=== PATIENT | female | born 1960 | race Caucasian/White ===

== ENCOUNTER 2017-02-09 07:45 | Emergency (ER) | payer OTHER ==
[~2017-02-09] VITALS: Ht 165.1 cm; Wt 59.1 kg
[2017-02-09] MEDS ORDERED: SODIUM CHLORIDE 0.9% 1,000 ML IV ONE (08:00)
[2017-02-09] MEDS ORDERED: NALOXONE HCL 1 MG/ML 2 ML SYG IVP ONE (08:00)
[2017-02-09 09:07] LABS: BASOPHILS % (AUTO) 0.3 % (0.0-2.0); EOSINOPHILS % (AUTO) 0.3 % (1.0-6.0); HEMOGLOBIN 13.9 g/dL (12.0-16.0); LYMPHOCYTES # (AUTO) 2.3 K/uL (1.0-4.8); LYMPHOCYTES % (AUTO) 38.5 % (22.0-44.0); MEAN CORPUSCULAR HEMOGLOBIN 32.6 pg (26.0-34.0); MEAN CORPUSCULAR HGB CONC 33.2 G/dL (31.0-37.0); MEAN CORPUSCULAR VOLUME 98 fL (80-100); MONOCYTES # (AUTO) 0.5 K/uL (0.1-1.0); MONOCYTES % (AUTO) 9.3 % (2.0-9.0); NEUTROPHILS % (AUTO) 51.6 % (40.0-70.0); PLATELET COUNT (AUTO) 126 K/uL (150-450); RED BLOOD CELL COUNT(AUTO) 4.27 MIL/uL (4.00-5.20); RED CELL DISTRIBUTION WIDTH 14.5 % (11.5-14.5); WHITE BLOOD COUNT (AUTO) 5.9 K/uL (4.5-11.0)
[2017-02-09 09:20] LABS: ANION GAP 3 mmol/L (8-16); CALCIUM, TOTAL 9.1 mg/dL (8.8-10.5); CARBON DIOXIDE 28 mmol/L (22-29); CHLORIDE 109 mmol/L (98-107); GLOMERULAR FILTR. RATE CALC > 60 mL/min (>60); POTASSIUM 3.2 mmol/L (3.5-5.1); SODIUM SERUM 140 mmol/L (136-145); UREA NITROGEN, BLOOD 14 mg/dL (7-18)
[2017-02-09 09:24] LABS: SALICYLATE 2.9 mg/dL (2.8-20.0)
[2017-02-09 09:25] LABS: ALANINE AMINOTRANSFERASE 58 U/L (12-78); ALBUMIN 3.5 g/dL (3.4-5.0); ASPARTATE AMINOTRANSFERASE 48 U/L (15-37); BILIRUBIN,TOTAL 0.7 mg/dL (0.1-1.0); TOTAL PROTEIN, SERUM 7.8 g/dL (6.4-8.2)
[2017-02-09 09:30] LABS: ACETAMINOPHEN < 2 mcg/mL (10-30)
[2017-02-09] MEDS ORDERED: HydrALAZINE HCL 20 MG/ML VIAL IVP ONE (14:45)
[2017-02-09 15:51] VITALS: BP 155/79
== END 2017-02-09 16:15 | disposition home or self-care (01) ==
LOC: EDBD 07:49 → EMS 07:49
DX: T50.7X1A Poisoning by analeptics and opioid receptor antagonists, accidental (unintentional), initial encounter (principal); I10 Essential (primary) hypertension; F17.210 Nicotine dependence, cigarettes, uncomplicated; F14.10 Cocaine abuse, uncomplicated; F13.20 Sedative, hypnotic or anxiolytic dependence, uncomplicated; F19.90 Other psychoactive substance use, unspecified, uncomplicated; Y92.481 Parking lot as the place of occurrence of the external cause
CPT/HCPCS: 36415; 71010; 80053; 80307; 84703; 85025; 93005; 96361; 96374; 99285; 99406; G0480 ×2; G0481; J2310; J7030

== ENCOUNTER 2017-12-10 05:56 | Emergency (ER) | payer OTHER ==
[~2017-12-10] VITALS: Ht 162.6 cm; Wt 68.7 kg
[2017-12-10] MEDS ORDERED: METH10SO PO (06:07)
[2017-12-10 07:02] LABS: GLUCOSE,POINT OF CARE 112 MG/DL (70-110)
[2017-12-10 07:28] LABS: BASOPHILS % (AUTO) 0.6 % (0.0-2.0); EOSINOPHILS % (AUTO) 1.3 % (1.0-6.0); HEMATOCRIT 42.4 % (36-46); HEMOGLOBIN 14.5 g/dL (12.0-16.0); LYMPHOCYTES # (AUTO) 2.3 K/uL (1.0-4.8); LYMPHOCYTES % (AUTO) 55.1 % (22.0-44.0); MEAN CORPUSCULAR HEMOGLOBIN 33.1 pg (26.0-34.0); MEAN CORPUSCULAR HGB CONC 34.2 G/dL (31.0-37.0); MEAN CORPUSCULAR VOLUME 97 fL (80-100); MONOCYTES # (AUTO) 0.4 K/uL (0.1-1.0); MONOCYTES % (AUTO) 10.5 % (2.0-9.0); NEUTROPHILS # (AUTO) 1.4 K/uL (1.8-7.7); NEUTROPHILS % (AUTO) 32.5 % (40.0-70.0); PLATELET COUNT (AUTO) 122 K/uL (150-450); RED BLOOD CELL COUNT(AUTO) 4.39 MIL/uL (4.00-5.20); RED CELL DISTRIBUTION WIDTH 13.9 % (11.5-14.5)
[2017-12-10 07:40] LABS: AMPHET/METH SCREEN,URINE POSITIVE (NEGATIVE); BARBITURATE SCREEN, URINE NEGATIVE (NEGATIVE); BENZODIAZEPINES SCREEN,URINE POSITIVE (NEGATIVE); CANNABINOID SCREEN,URINE NEGATIVE (NEGATIVE); COCAINE SCREEN,URINE POSITIVE (NEGATIVE); METHADONE SCREEN, URINE POSITIVE (NEGATIVE); OPIATE SCREEN,URINE NEGATIVE (NEGATIVE)
[2017-12-10 07:44] LABS: PHENCYCLIDINE SCREEN,URINE POSITIVE (NEGATIVE)
[2017-12-10] MEDS ORDERED: NALOXONE HCL 1 MG/ML 2 ML SYG IVP ONE ×2 (08:15→13:30)
[2017-12-10] MEDS ORDERED: SODIUM CHLORIDE 0.9% 1,000 ML IV ONE (08:30)
[2017-12-10 09:17] LABS: ANION GAP 7 mmol/L (8-16); CALCIUM, TOTAL 9.6 mg/dL (8.8-10.5); CARBON DIOXIDE 29 mmol/L (22-29); CHLORIDE 106 mmol/L (98-107); CREATININE 0.85 mg/dL (0.60-1.30); GLOMERULAR FILTR. RATE CALC > 60 mL/min (>60); GLUCOSE,RANDOM 79 mg/dL (70-110); POTASSIUM 3.7 mmol/L (3.5-5.1); SODIUM SERUM 142 mmol/L (136-145); UREA NITROGEN, BLOOD 18 mg/dL (7-18)
[2017-12-10 09:23] LABS: ALANINE AMINOTRANSFERASE 99 U/L (12-78); ALBUMIN 3.5 g/dL (3.4-5.0); ALKALINE PHOSPHATASE 70 U/L (46-116); ASPARTATE AMINOTRANSFERASE 89 U/L (15-37); TOTAL PROTEIN, SERUM 7.6 g/dL (6.4-8.2)
[2017-12-10 09:27] LABS: ACETAMINOPHEN < 2 mcg/mL (10-30)
[2017-12-10 09:35] LABS: SALICYLATE < 2.8 mg/dL (2.8-20.0)
[2017-12-10 13:48] VITALS: BP 155/78
== END 2017-12-10 14:22 | disposition home or self-care (01) ==
LOC: EMS 05:57
DX: T40.991A Poisoning by other psychodysleptics [hallucinogens], accidental (unintentional), initial encounter (principal); T43.621A Poisoning by amphetamines, accidental (unintentional), initial encounter; T42.4X1A Poisoning by benzodiazepines, accidental (unintentional), initial encounter; T40.3X1A Poisoning by methadone, accidental (unintentional), initial encounter; F19.129 Other psychoactive substance abuse with intoxication, unspecified; F19.10 Other psychoactive substance abuse, uncomplicated; I10 Essential (primary) hypertension; F17.210 Nicotine dependence, cigarettes, uncomplicated; Z88.1 Allergy status to other antibiotic agents; Y92.488 Other paved roadways as the place of occurrence of the external cause
CPT/HCPCS: 36415; 80053; 80307; 82962; 85025; 93005; 96361; 96374; 99285; G0480 ×2; G0481; J2310; J7030

== ENCOUNTER 2018-05-16 19:53 | Emergency (ER) | payer OTHER ==
[~2018-05-16] VITALS: Ht 162.6 cm; Wt 65.9 kg
[~2018-05-16 19:53] MED LIST: METH10SO PO
[2018-05-16 22:41] VITALS: BP 145/88
== END 2018-05-16 22:43 | disposition home or self-care (01) ==
LOC: EMS 19:54
DX: S62.616A Displaced fracture of proximal phalanx of right little finger, initial encounter for closed fracture (principal); I10 Essential (primary) hypertension; F17.210 Nicotine dependence, cigarettes, uncomplicated; F12.90 Cannabis use, unspecified, uncomplicated; F13.90 Sedative, hypnotic, or anxiolytic use, unspecified, uncomplicated; F14.90 Cocaine use, unspecified, uncomplicated; Z88.1 Allergy status to other antibiotic agents; V19.9XXA Pedal cyclist (driver) (passenger) injured in unspecified traffic accident, initial encounter; Y93.89 Activity, other specified; Y92.89 Other specified places as the place of occurrence of the external cause; Y99.8 Other external cause status
CPT/HCPCS: 99284

== ENCOUNTER 2019-08-08 15:59 | Emergency (ER) | payer OTHER ==
[~2019-08-08] VITALS: Ht 160 cm; Wt 65.0 kg
[~2019-08-08 15:59] MED LIST changes: +CIPR-278 PO; +FOLI1 PO; -METH10SO PO
[2019-08-08] MEDS ORDERED: METH10SO PO (16:41)
[2019-08-08] MEDS ORDERED: NALOXONE HCL 1 MG/ML 2 ML SYG IVP ONE (19:45)
[2019-08-08 20:17] LABS: BASOPHILS % (AUTO) 0.4 % (0.0-2.0); EOSINOPHILS % (AUTO) 1.1 % (1.0-6.0); HEMATOCRIT 40.4 % (36-46); HEMOGLOBIN 13.7 g/dL (12.0-16.0); LYMPHOCYTES # (AUTO) 1.6 K/uL (1.0-4.8); MEAN CORPUSCULAR HEMOGLOBIN 33.3 pg (26.0-34.0); MEAN CORPUSCULAR HGB CONC 33.9 G/dL (31.0-37.0); MEAN CORPUSCULAR VOLUME 98 fL (80-100); MONOCYTES # (AUTO) 0.4 K/uL (0.1-1.0); MONOCYTES % (AUTO) 12.3 % (2.0-9.0); NEUTROPHILS # (AUTO) 1.5 K/uL (1.8-7.7); NEUTROPHILS % (AUTO) 42.2 % (40.0-70.0); PLATELET COUNT (AUTO) 114 K/uL (150-450); RED BLOOD CELL COUNT(AUTO) 4.12 MIL/uL (4.00-5.20); RED CELL DISTRIBUTION WIDTH 14.1 % (11.5-14.5)
[2019-08-08 20:27] LABS: ANION GAP 6 mmol/L (8-16); CALCIUM, TOTAL 10.6 mg/dL (8.8-10.5); CARBON DIOXIDE 28 mmol/L (22-29); CHLORIDE 106 mmol/L (98-107); CREATININE 0.87 mg/dL (0.60-1.30); GLOMERULAR FILTR. RATE CALC > 60 mL/min (>60); GLUCOSE,RANDOM 91 mg/dL (70-110); POTASSIUM 4.2 mmol/L (3.5-5.1); SODIUM SERUM 140 mmol/L (136-145); UREA NITROGEN, BLOOD 11 mg/dL (7-18)
[2019-08-08 20:33] LABS: ALANINE AMINOTRANSFERASE 97 U/L (12-78); ALBUMIN 3.4 g/dL (3.4-5.0); ALKALINE PHOSPHATASE 84 U/L (46-116); ASPARTATE AMINOTRANSFERASE 97 U/L (15-37); BILIRUBIN,TOTAL 0.7 mg/dL (0.1-1.0); TOTAL PROTEIN, SERUM 7.4 g/dL (6.4-8.2)
[2019-08-08 21:52] LABS: APPEARANCE,URINE CLOUDY (CLEAR); BILIRUBIN,URINE NEGATIVE (NEGATIVE); GLUCOSE, URINE (UA) NEGATIVE (NEGATIVE); KETONES,URINE NEGATIVE (NEGATIVE); LEUKOCYTE ESTERASE ,URINE MODERATE (NEGATIVE); NITRATE,URINE POSITIVE (NEGATIVE); OCCULT BLOOD,URINE NEGATIVE (NEGATIVE); PH,URINE 6.5 (5.0-8.0); PROTEIN,URINE NEGATIVE (NEGATIVE)
[2019-08-08 22:01] LABS: AMPHET/METH SCREEN,URINE NEGATIVE (NEGATIVE); BARBITURATE SCREEN, URINE NEGATIVE (NEGATIVE); BENZODIAZEPINES SCREEN,URINE POSITIVE (NEGATIVE); CANNABINOID SCREEN,URINE NEGATIVE (NEGATIVE); COCAINE SCREEN,URINE POSITIVE (NEGATIVE); METHADONE SCREEN, URINE POSITIVE (NEGATIVE); OPIATE SCREEN,URINE POSITIVE (NEGATIVE)
[2019-08-08 22:19] LABS: BACTERIA,URINE Many /HPF (None Seen); PHENCYCLIDINE SCREEN,URINE POSITIVE (NEGATIVE)
[2019-08-08 22:20] LABS: RBC,URINE None Seen /HPF (0-2)
[2019-08-08 22:22] LABS: CALCIUM OXALATE CRYSTALS,UR Rare /LPF (None Seen); SQUAMOUS EPITHELIAL CELL,UR Rare /LPF (None Seen)
[2019-08-08 22:47] VITALS: BP 112/73
== END 2019-08-08 23:33 | disposition home or self-care (01) ==
LOC: EMS 16:00
DX: T40.3X1A Poisoning by methadone, accidental (unintentional), initial encounter (principal); S16.1XXA Strain of muscle, fascia and tendon at neck level, initial encounter; S09.90XA Unspecified injury of head, initial encounter; G92 Toxic encephalopathy; I10 Essential (primary) hypertension; F17.210 Nicotine dependence, cigarettes, uncomplicated; F11.90 Opioid use, unspecified, uncomplicated; Z86.19 Personal history of other infectious and parasitic diseases; Z79.899 Other long term (current) drug therapy; Z88.8 Allergy status to other drugs, medicaments and biological substances; Y04.0XXA Assault by unarmed brawl or fight, initial encounter; Y93.89 Activity, other specified; Y92.89 Other specified places as the place of occurrence of the external cause; Y99.8 Other external cause status
CPT/HCPCS: 36415; 70450; 72125; 80053; 80307; 81001; 82140; 85025; 87077; 87086; 87186; 96374; 99285; G0480; J2310; 51701

== ENCOUNTER 2019-09-03 01:20 | Emergency (ER) | payer OTHER ==
[~2019-09-03] VITALS: Ht 162.6 cm; Wt 63.6 kg
[~2019-09-03 01:20] MED LIST changes: -CIPR-278 PO; -FOLI1 PO; +METH10SO PO
[2019-09-03 01:23] VITALS: BP 143/67
== END 2019-09-03 05:14 | disposition home or self-care (01) ==
LOC: EMS 01:22
DX: L02.413 Cutaneous abscess of right upper limb (principal); F11.10 Opioid abuse, uncomplicated; F17.210 Nicotine dependence, cigarettes, uncomplicated; I10 Essential (primary) hypertension; Z88.1 Allergy status to other antibiotic agents
CPT/HCPCS: 99406

== ENCOUNTER 2020-01-02 08:36 | Emergency (ER) | payer OTHER ==
[~2020-01-02] VITALS: Ht 162.6 cm; Wt 67.7 kg
[2020-01-02] MEDS ORDERED: HYDROCODONE/ACETAMINOPHEN 10-325 MG TABLET PO ONE (09:45)
[2020-01-02 11:07] VITALS: BP 147/79
== END 2020-01-02 11:50 | disposition home or self-care (01) ==
LOC: EMS 08:38
DX: S52.501A Unspecified fracture of the lower end of right radius, initial encounter for closed fracture (principal); S52.601A Unspecified fracture of lower end of right ulna, initial encounter for closed fracture; I10 Essential (primary) hypertension; F17.210 Nicotine dependence, cigarettes, uncomplicated; F11.90 Opioid use, unspecified, uncomplicated; Z88.8 Allergy status to other drugs, medicaments and biological substances; W01.0XXA Fall on same level from slipping, tripping and stumbling without subsequent striking against object, initial encounter; Y93.89 Activity, other specified; Y92.89 Other specified places as the place of occurrence of the external cause; Y99.8 Other external cause status

== ENCOUNTER 2020-03-12 16:09 | Emergency (ER) | payer OTHER | END 2020-03-12 19:14 | disposition left against medical advice (07) | LOC: EMS 16:11 | DX: T50.7X1A Poisoning by analeptics and opioid receptor antagonists, accidental (unintentional), initial encounter (principal); Z53.21 Procedure and treatment not carried out due to patient leaving prior to being seen by health care provider; Y92.89 Other specified places as the place of occurrence of the external cause ==

== ENCOUNTER 2020-06-29 00:22 | Inpatient (IN) | payer OTHER ==
[~2020-06-29] VITALS: Ht 162.6 cm; Wt 65.9 kg
[2020-06-29] MEDS ORDERED: ONDANSETRON HCL 4 MG/2 ML VIAL IVP ONE (01:45)
[2020-06-29] MEDS ORDERED: SODIUM CHLORIDE 0.9% 1,000 ML IV ONE (01:45)
[2020-06-29] MEDS ORDERED: PERTUSS(ACELL),DIPH,TET VAC/PF 0.5 ML VIAL IM ONE (02:15)
[2020-06-29] MEDS ORDERED: BACITRACIN 0.9 GM PACKET OINTMENT TP ONE (02:15)
[2020-06-29] MEDS ORDERED: ONDANSETRON HCL 4 MG/2 ML VIAL IM ONE (02:15)
[2020-06-29 02:38] LABS: BASOPHILS % (AUTO) 0.4 % (0.0-2.0); HEMATOCRIT 36.2 % (36-46); HEMOGLOBIN 11.9 g/dL (12.0-16.0); LYMPHOCYTES % (AUTO) 30.8 % (22.0-44.0); MEAN CORPUSCULAR HEMOGLOBIN 29.6 pg (26.0-34.0); MEAN CORPUSCULAR HGB CONC 32.8 G/dL (31.0-37.0); MEAN CORPUSCULAR VOLUME 90 fL (80-100); MONOCYTES # (AUTO) 0.3 K/uL (0.1-1.0); MONOCYTES % (AUTO) 9.8 % (2.0-9.0); NEUTROPHILS # (AUTO) 1.8 K/uL (1.8-7.7); PLATELET COUNT (AUTO) 108 K/uL (150-450); RED CELL DISTRIBUTION WIDTH 15.2 % (11.5-14.5)
[2020-06-29 02:46] LABS: ANION GAP 6 mmol/L (8-16); CALCIUM, TOTAL 9.4 mg/dL (8.8-10.5); CARBON DIOXIDE 30 mmol/L (22-29); CHLORIDE 99 mmol/L (98-107); CREATININE 1.09 mg/dL (0.60-1.30); GLOMERULAR FILTR. RATE CALC 51 mL/min (>60); GLUCOSE,RANDOM 99 mg/dL (70-110); POTASSIUM 3.6 mmol/L (3.5-5.1); SODIUM SERUM 135 mmol/L (136-145); UREA NITROGEN, BLOOD 9 mg/dL (7-18)
[2020-06-29 02:52] LABS: CREATINE KINASE, TOTAL ONLY 45 U/L (26-192)
[2020-06-29 02:55] LABS: LACTIC ACID 0.6 mmol/L (0.4-2.0)
[2020-06-29] MEDS ORDERED: CefTRIAXone 1 GM/DEXTROSE 50 ML IV ONE (03:15)
[2020-06-29] MEDS ORDERED: VANCOMYCIN HCL 1 GM/D5% WATER 200 ML IV ONE (03:15)
[2020-06-29] MEDS ORDERED: ONDANSETRON HCL 4 MG/2 ML VIAL IVP PRN ×2 (03:30→20:30)
[2020-06-29] MEDS ORDERED: 0.9% SODIUM CHLORIDE 10 ML SYRINGE IVP PRN (03:30)
[2020-06-29] MEDS ORDERED: ACETAMINOPHEN 325 MG TABLET PO PRN ×2 (03:30→20:30)
[2020-06-29 04:06] LABS: C-REACTIVE PROTEIN QUANT < 0.05 mg/dL (0.00-0.30)
[2020-06-29] MEDS ORDERED: IOVERSOL 350 MG/ML 100 ML VIAL ONE (04:32)
[2020-06-29] MEDS ORDERED: SODIUM CHLORIDE 0.9% 100 ML ONE (04:32)
[2020-06-29 05:30] LABS: AMPHET/METH SCREEN,URINE NEGATIVE (NEGATIVE); BARBITURATE SCREEN, URINE NEGATIVE (NEGATIVE); BENZODIAZEPINES SCREEN,URINE NEGATIVE (NEGATIVE); CANNABINOID SCREEN,URINE NEGATIVE (NEGATIVE); COCAINE SCREEN,URINE NEGATIVE (NEGATIVE); METHADONE SCREEN, URINE POSITIVE (NEGATIVE); OPIATE SCREEN,URINE POSITIVE (NEGATIVE)
[2020-06-29 05:31] LABS: PHENCYCLIDINE SCREEN,URINE POSITIVE (NEGATIVE)
[2020-06-29 06:48] VITALS: BP 160/75
[2020-06-29] MEDS ORDERED: METHADONE HCL 10 MG/5 ML SOLUTION ORAL.SYG PO ONE (14:45)
[2020-06-29] MEDS ORDERED: VANCOMYCIN HCL 1 GM/D5% WATER 200 ML IV SCH (18:15)
[2020-06-29] MEDS ORDERED: VANCOMYCIN HCL 1.25 GM in DEXTROSE 5%-WATER 250 ML IV ONE (18:30)
[2020-06-29] MEDS ORDERED: SODIUM CHLORIDE 0.9% 500 ML IV ONE (19:11)
[2020-06-29 19:45] VITALS: BP 133/65
[2020-06-29] MEDS ORDERED: ZOLPIDEM TARTRATE 5 MG TABLET PO PRN (20:30)
[2020-06-29] MEDS ORDERED: IPRATROPIUM BROMIDE 0.5 MG/2.5 ML NEB SOLUTION NEB PRN (20:30)
[2020-06-29] MEDS ORDERED: ALBUTEROL SULFATE 2.5 MG/0.5 ML NEB SOLUTION NEB PRN (20:30)
[2020-06-29] MEDS ORDERED: BISACODYL 10 MG RECTAL RECTAL SUPPOSITORY PR PRN (20:30)
[2020-06-29] MEDS ORDERED: MAGNESIUM HYDROXIDE SUSPENSION 30 ML UDCUP PO PRN (20:30)
[2020-06-29] MEDS: DOCUSATE SODIUM 100 MG CAPSULE PO SCH (21:54)
[2020-06-30] MEDS: HEPARIN SODIUM,PORCINE 5,000 UNITS/ML VIAL SQ SCH ×3 (00:03→16:00)
[2020-06-30 02:04] VITALS: BP 149/60
[2020-06-30 04:50] VITALS: BP 158/75
[2020-06-30 06:51] LABS: CALCIUM, TOTAL 9.5 mg/dL (8.8-10.5); CREATININE 0.96 mg/dL (0.60-1.30); POTASSIUM 4.9 mmol/L (3.5-5.1)
[2020-06-30] MEDS ORDERED: VANCOMYCIN HCL 750 MG in DEXTROSE 5%-WATER 250 ML IV SCH (08:00)
[2020-06-30] MEDS ORDERED: METHADONE HCL 10 MG/5 ML SOLUTION ORAL.SYG PO SCH (09:00)
[2020-06-30] MEDS: DOCUSATE SODIUM 100 MG CAPSULE PO SCH (09:08)
[2020-06-30 11:57] VITALS: BP 128/64
[2020-06-30] MEDS ORDERED: DOXY-354 PO (13:00)
[2020-06-30 15:52] VITALS: BP 121/63
== END 2020-06-30 16:00 | disposition home or self-care (01) | DRG 383 ==
LOC: EMS 00:22 → 6N 05:37 → UNDOADMIN 05:37 → 6N 11:19 → 4E 06-30 07:30
PROVIDERS: ADMIT Hospitalist; ATTEND Hospitalist
DX: L03.116 Cellulitis of left lower limb (principal); I10 Essential (primary) hypertension; Z88.5 Allergy status to narcotic agent; Z82.49 Family history of ischemic heart disease and other diseases of the circulatory system; Z82.5 Family history of asthma and other chronic lower respiratory diseases; Z79.899 Other long term (current) drug therapy; Z88.8 Allergy status to other drugs, medicaments and biological substances; Z83.6 Family history of other diseases of the respiratory system
CPT/HCPCS: 73701; 83605; 85651; 86140; 87040; 90715; J0696; J1644; J2405; J3370; J7030; J7040; J7050; J7060

== ENCOUNTER 2020-08-14 01:21 | Emergency (ER) | payer OTHER ==
[~2020-08-14] VITALS: Ht 162.6 cm; Wt 66.4 kg
[~2020-08-14 01:21] MED LIST changes: +DOXY-354 PO
[2020-08-14] MEDS ORDERED: LISI-662 PO (01:29)
[2020-08-14] MEDS ORDERED: TRAZ-252 PO (01:29)
[2020-08-14 02:12] LABS: COVID AG,FIA SOURCE NASOPHARYNGEAL
[2020-08-14] MEDS ORDERED: AZITHROMYCIN 500 MG TABLET PO ONE (02:30)
[2020-08-14 02:37] VITALS: BP 158/86
== END 2020-08-14 02:42 | disposition home or self-care (01) ==
LOC: EMS 01:21
DX: R05 Cough (principal); F17.210 Nicotine dependence, cigarettes, uncomplicated; I10 Essential (primary) hypertension; Z20.828 Contact with and (suspected) exposure to other viral communicable diseases; Z88.8 Allergy status to other drugs, medicaments and biological substances; Z79.899 Other long term (current) drug therapy
CPT/HCPCS: 71045; 87426; 99284; U0003

== ENCOUNTER 2020-10-21 11:17 | Emergency (ER) | payer OTHER ==
[~2020-10-21] VITALS: Ht 165.1 cm; Wt 59.1 kg
[~2020-10-21 11:17] MED LIST changes: -DOXY-354 PO; +LISI-662 PO; +TRAZ-252 PO
[2020-10-21 11:18] VITALS: BP 128/71
== END 2020-10-21 12:48 | disposition home or self-care (01) ==
LOC: EMS 11:19
DX: U07.1 COVID-19 (principal); R05 Cough; I10 Essential (primary) hypertension; F17.210 Nicotine dependence, cigarettes, uncomplicated; F11.90 Opioid use, unspecified, uncomplicated; Z88.8 Allergy status to other drugs, medicaments and biological substances; Z79.899 Other long term (current) drug therapy
CPT/HCPCS: 99283; U0003

== ENCOUNTER 2021-01-09 01:50 | Emergency (ER) | payer OTHER ==
[~2021-01-09] VITALS: Ht 162.6 cm; Wt 67.3 kg
[~2021-01-09 01:50] MED LIST changes: -LISI-662 PO; +LISI-894 PO
[2021-01-09] MEDS ORDERED: amlodipine PO (02:02)
[2021-01-09 04:30] LABS: BASOPHILS % (AUTO) 0.4 % (0.0-2.0); EOSINOPHILS % (AUTO) 1.1 % (1.0-6.0); HEMATOCRIT 43.6 % (36-46); LYMPHOCYTES # (AUTO) 1.7 K/uL (1.0-4.8); LYMPHOCYTES % (AUTO) 44.5 % (22.0-44.0); MEAN CORPUSCULAR HEMOGLOBIN 32.2 pg (26.0-34.0); MEAN CORPUSCULAR HGB CONC 32.2 G/dL (31.0-37.0); MEAN CORPUSCULAR VOLUME 100 fL (80-100); MONOCYTES # (AUTO) 0.5 K/uL (0.1-1.0); MONOCYTES % (AUTO) 11.9 % (2.0-9.0); NEUTROPHILS # (AUTO) 1.6 K/uL (1.8-7.7); NEUTROPHILS % (AUTO) 42.1 % (40.0-70.0); RED BLOOD CELL COUNT(AUTO) 4.36 MIL/uL (4.00-5.20)
[2021-01-09 04:42] LABS: ANION GAP 9 mmol/L (8-16); CARBON DIOXIDE 29 mmol/L (22-29); CHLORIDE 106 mmol/L (98-107); CREATININE 0.86 mg/dL (0.60-1.30); GLOMERULAR FILTR. RATE CALC > 60 mL/min (>60); GLUCOSE,RANDOM 108 mg/dL (70-110); SODIUM SERUM 144 mmol/L (136-145); UREA NITROGEN, BLOOD 12 mg/dL (7-18)
[2021-01-09 04:44] LABS: PLATELET COUNT (AUTO) 98 K/uL (150-450)
[2021-01-09 04:46] LABS: APPEARANCE,URINE CLEAR (CLEAR); BILIRUBIN,URINE NEGATIVE (NEGATIVE); GLUCOSE, URINE (UA) NEGATIVE (NEGATIVE); KETONES,URINE NEGATIVE (NEGATIVE); LEUKOCYTE ESTERASE ,URINE TRACE (NEGATIVE); NITRATE,URINE NEGATIVE (NEGATIVE); OCCULT BLOOD,URINE NEGATIVE (NEGATIVE); PH,URINE 6.5 (5.0-8.0); PROTEIN,URINE NEGATIVE (NEGATIVE)
[2021-01-09 04:46] LABS: INR 1.1 (0.9-1.1); PROTHROMBIN TIME 11.6 SEC (9.4-11.6)
[2021-01-09 04:47] LABS: ALANINE AMINOTRANSFERASE 118 U/L (12-78); ALBUMIN 3.6 g/dL (3.4-5.0); ALKALINE PHOSPHATASE 76 U/L (46-116); ASPARTATE AMINOTRANSFERASE 92 U/L (15-37); BILIRUBIN,TOTAL 0.7 mg/dL (0.1-1.0); TOTAL PROTEIN, SERUM 7.7 g/dL (6.4-8.2)
[2021-01-09 04:55] LABS: BACTERIA,URINE None Seen /HPF (None Seen); RBC,URINE None Seen /HPF (0-2)
[2021-01-09 04:56] LABS: SQUAMOUS EPITHELIAL CELL,UR Few /LPF (None Seen)
[2021-01-09 05:14] VITALS: BP 163/91
[2021-01-09 05:31] LABS: B-TYPE NATRIURETIC PEPTIDE 34 pg/mL (0-100)
== END 2021-01-09 05:40 | disposition home or self-care (01) ==
LOC: EMS 01:54
DX: I44.0 Atrioventricular block, first degree (principal); I10 Essential (primary) hypertension; F17.210 Nicotine dependence, cigarettes, uncomplicated; F11.90 Opioid use, unspecified, uncomplicated; Z88.0 Allergy status to penicillin; Z76.0 Encounter for issue of repeat prescription; Z79.899 Other long term (current) drug therapy
CPT/HCPCS: 70450; 93005; 99285; 36415-L1; 36415-TC; 71045-TC

== ENCOUNTER 2021-09-09 05:16 | Emergency (ER) | payer OTHER ==
[~2021-09-09] VITALS: Ht 162.6 cm; Wt 63.6 kg
[~2021-09-09 05:16] MED LIST changes: +amlodipine PO
[2021-09-09 05:22] VITALS: BP 187/75
== END 2021-09-09 06:31 | disposition left against medical advice (07) ==
LOC: EMS 05:16
DX: R20.2 Paresthesia of skin (principal); I10 Essential (primary) hypertension; B19.20 Unspecified viral hepatitis C without hepatic coma
CPT/HCPCS: 82962; 99282

== ENCOUNTER 2021-09-18 13:41 | Emergency (ER) | payer OTHER ==
[~2021-09-18] VITALS: Ht 167.6 cm; Wt 72.7 kg
[2021-09-18] MEDS ORDERED: ONDANSETRON HCL 4 MG/2 ML VIAL IVP ONE (14:15)
[2021-09-18] MEDS ORDERED: SODIUM CHLORIDE 0.9% 1,000 ML IV ONE (14:15)
[2021-09-18 14:47] LABS: BASOPHILS % (AUTO) 0.3 % (0.0-2.0); EOSINOPHILS % (AUTO) 0.5 % (1.0-6.0); HEMATOCRIT 42.7 % (36-46); HEMOGLOBIN 14.4 g/dL (12.0-16.0); LYMPHOCYTES # (AUTO) 3.6 K/uL (1.0-4.8); LYMPHOCYTES % (AUTO) 49.8 % (22.0-44.0); MEAN CORPUSCULAR HEMOGLOBIN 33.2 pg (26.0-34.0); MEAN CORPUSCULAR HGB CONC 33.7 G/dL (31.0-37.0); MEAN CORPUSCULAR VOLUME 99 fL (80-100); MONOCYTES # (AUTO) 0.8 K/uL (0.1-1.0); MONOCYTES % (AUTO) 10.7 % (2.0-9.0); NEUTROPHILS # (AUTO) 2.8 K/uL (1.8-7.7); NEUTROPHILS % (AUTO) 38.7 % (40.0-70.0); PLATELET COUNT (AUTO) 140 K/uL (150-450); RED BLOOD CELL COUNT(AUTO) 4.33 MIL/uL (4.00-5.20); RED CELL DISTRIBUTION WIDTH 14.5 % (11.5-14.5)
[2021-09-18 14:59] LABS: SALICYLATE 1.5 mg/dL (2.8-20.0)
[2021-09-18 15:00] LABS: ANION GAP 6 mmol/L (8-16); CALCIUM, TOTAL 9.6 mg/dL (8.8-10.5); CARBON DIOXIDE 29 mmol/L (22-29); CHLORIDE 103 mmol/L (98-107); CREATININE 0.94 mg/dL (0.60-1.30); GLOMERULAR FILTR. RATE CALC > 60 mL/min (>60); GLUCOSE,RANDOM 97 mg/dL (70-110); POTASSIUM 3.4 mmol/L (3.5-5.1); SODIUM SERUM 138 mmol/L (136-145); UREA NITROGEN, BLOOD 14 mg/dL (7-18)
[2021-09-18 15:06] LABS: ALANINE AMINOTRANSFERASE 126 U/L (12-78); ALBUMIN 3.7 g/dL (3.4-5.0); ALKALINE PHOSPHATASE 93 U/L (46-116); ASPARTATE AMINOTRANSFERASE 105 U/L (15-37); BILIRUBIN,TOTAL 1.3 mg/dL (0.1-1.0); TOTAL PROTEIN, SERUM 8.2 g/dL (6.4-8.2)
[2021-09-18 15:07] LABS: ACETAMINOPHEN < 2 mcg/mL (10-30)
[2021-09-18 18:02] VITALS: BP 138/90
== END 2021-09-18 18:15 | disposition home or self-care (01) ==
LOC: EMS 13:41
DX: T40.3X1A Poisoning by methadone, accidental (unintentional), initial encounter (principal); I10 Essential (primary) hypertension; F17.210 Nicotine dependence, cigarettes, uncomplicated; F11.90 Opioid use, unspecified, uncomplicated; Y92.89 Other specified places as the place of occurrence of the external cause; Z86.19 Personal history of other infectious and parasitic diseases
CPT/HCPCS: 36415; 80053; 85025; 93005; 96361; 96374; 99284; G0480; J2405; J7030; G0481

== ENCOUNTER 2021-11-08 23:05 | Inpatient (IN) | payer OTHER ==
[~2021-11-08] VITALS: Ht 162.6 cm; Wt 63.6 kg
[2021-11-09] MEDS ORDERED: PIPERACILLIN/TAZO 3.375 GM/D5W 50 ML IV ONE ×2 (05:45→12:30)
[2021-11-09 05:47] LABS: BASOPHILS % (AUTO) 0.3 % (0.0-2.0); EOSINOPHILS % (AUTO) 0.1 % (1.0-6.0); HEMATOCRIT 43.1 % (36-46); HEMOGLOBIN 15.1 g/dL (12.0-16.0); LYMPHOCYTES # (AUTO) 2.2 K/uL (1.0-4.8); LYMPHOCYTES % (AUTO) 18.1 % (22.0-44.0); MEAN CORPUSCULAR HEMOGLOBIN 33.7 pg (26.0-34.0); MEAN CORPUSCULAR HGB CONC 34.9 G/dL (31.0-37.0); MEAN CORPUSCULAR VOLUME 97 fL (80-100); MONOCYTES # (AUTO) 0.9 K/uL (0.1-1.0); MONOCYTES % (AUTO) 7.7 % (2.0-9.0); NEUTROPHILS # (AUTO) 9.1 K/uL (1.8-7.7); NEUTROPHILS % (AUTO) 73.8 % (40.0-70.0); PLATELET COUNT (AUTO) 125 K/uL (150-450); RED BLOOD CELL COUNT(AUTO) 4.46 MIL/uL (4.00-5.20); RED CELL DISTRIBUTION WIDTH 14.1 % (11.5-14.5)
[2021-11-09 06:04] LABS: ALANINE AMINOTRANSFERASE 81 U/L (12-78); ALBUMIN 3.6 g/dL (3.4-5.0); ALKALINE PHOSPHATASE 97 U/L (46-116); ANION GAP 4 mmol/L (8-16); ASPARTATE AMINOTRANSFERASE 65 U/L (15-37); BILIRUBIN,TOTAL 2.1 mg/dL (0.1-1.0); CALCIUM, TOTAL 9.6 mg/dL (8.8-10.5); CARBON DIOXIDE 31 mmol/L (22-29); CHLORIDE 101 mmol/L (98-107); CREATININE 0.91 mg/dL (0.60-1.30); GLOMERULAR FILTR. RATE CALC > 60 mL/min (>60); GLUCOSE,RANDOM 94 mg/dL (70-110); POTASSIUM 3.8 mmol/L (3.5-5.1); SODIUM SERUM 136 mmol/L (136-145); TOTAL PROTEIN, SERUM 8.6 g/dL (6.4-8.2); UREA NITROGEN, BLOOD 12 mg/dL (7-18)
[2021-11-09 06:08] LABS: LACTIC ACID 0.7 mmol/L (0.4-2.0)
[2021-11-09] MEDS ORDERED: ACETAMINOPHEN 325 MG TABLET PO PRN ×2 (06:30→12:15)
[2021-11-09] MEDS ORDERED: 0.9% SODIUM CHLORIDE 10 ML SYRINGE IVP PRN (06:30)
[2021-11-09] MEDS ORDERED: ONDANSETRON HCL 4 MG/2 ML VIAL IVP PRN (06:30)
[2021-11-09] MEDS ORDERED: VANCOMYCIN HCL 1.25 GM in DEXTROSE 5%-WATER 250 ML IV ONE (06:30)
[2021-11-09] MEDS ORDERED: BACITRACIN 0.9 GM PACKET OINTMENT TP ONE (06:45)
[2021-11-09 09:45] LABS: COVID AG,FIA SOURCE NASOPHARYNGEAL
[2021-11-09] MEDS ORDERED: AMLO-257 PO (12:11)
[2021-11-09] MEDS ORDERED: MAGNESIUM HYDROXIDE SUSPENSION 30 ML UDCUP PO PRN (12:15)
[2021-11-09] MEDS ORDERED: ZOLPIDEM TARTRATE 5 MG TABLET PO PRN (12:15)
[2021-11-09] MEDS: METHADONE HCL 10 MG TABLET PO SCH (14:11)
[2021-11-09] MEDS: OxyCODONE HCL/ACETAMINOPHEN 5-325 MG TABLET PO PRN (16:38)
[2021-11-09 18:52] VITALS: BP 119/78
[2021-11-09] MEDS: VANCOMYCIN HCL 1 GM/D5% WATER 200 ML IV SCH (20:20)
[2021-11-09] MEDS ORDERED: SODIUM CHLORIDE 0.9% 250 ML IV ONE (20:27)
[2021-11-09 21:25] VITALS: BP 135/95
[2021-11-09] MEDS: PIPERACILLIN/TAZO 3.375 GM/D5W 50 ML IV SCH (22:18)
[2021-11-10] MEDS: OxyCODONE HCL/ACETAMINOPHEN 5-325 MG TABLET PO PRN ×2 (00:01→13:25)
[2021-11-10] MEDS: PIPERACILLIN/TAZO 3.375 GM/D5W 50 ML IV SCH ×4 (04:19→22:05)
[2021-11-10 05:43] VITALS: BP 125/73
[2021-11-10 07:10] LABS: ANION GAP 1 mmol/L (8-16); CALCIUM, TOTAL 9.3 mg/dL (8.8-10.5); CARBON DIOXIDE 30 mmol/L (22-29); CHLORIDE 104 mmol/L (98-107); CREATININE 0.92 mg/dL (0.60-1.30); GLOMERULAR FILTR. RATE CALC > 60 mL/min (>60); GLUCOSE,RANDOM 90 mg/dL (70-110); POTASSIUM 3.7 mmol/L (3.5-5.1); SODIUM SERUM 135 mmol/L (136-145); UREA NITROGEN, BLOOD 13 mg/dL (7-18)
[2021-11-10] MEDS: VANCOMYCIN HCL 1 GM/D5% WATER 200 ML IV SCH ×2 (07:40→20:00)
[2021-11-10] MEDS: METHADONE HCL 10 MG TABLET PO SCH (08:13)
[2021-11-10] MEDS: FAMOTIDINE 20 MG TABLET PO SCH (08:13)
[2021-11-10] MEDS: LISINOPRIL 20 MG TABLET PO SCH (08:13)
[2021-11-10 09:10] VITALS: BP 126/76
[2021-11-10 09:30] LABS: BASOPHILS % (AUTO) 0.5 % (0.0-2.0); EOSINOPHILS % (AUTO) 0.9 % (1.0-6.0); HEMOGLOBIN 13.4 g/dL (12.0-16.0); LYMPHOCYTES # (AUTO) 2.3 K/uL (1.0-4.8); LYMPHOCYTES % (AUTO) 38.7 % (22.0-44.0); MEAN CORPUSCULAR HEMOGLOBIN 34.1 pg (26.0-34.0); MEAN CORPUSCULAR HGB CONC 35.2 G/dL (31.0-37.0); MEAN CORPUSCULAR VOLUME 97 fL (80-100); MONOCYTES # (AUTO) 0.6 K/uL (0.1-1.0); MONOCYTES % (AUTO) 9.7 % (2.0-9.0); NEUTROPHILS % (AUTO) 50.2 % (40.0-70.0); PLATELET COUNT (AUTO) 109 K/uL (150-450); RED BLOOD CELL COUNT(AUTO) 3.91 MIL/uL (4.00-5.20); RED CELL DISTRIBUTION WIDTH 14.2 % (11.5-14.5)
[2021-11-10 16:23] VITALS: BP 100/64
[2021-11-10 19:45] VITALS: BP 136/68
[2021-11-11] MEDS: OxyCODONE HCL/ACETAMINOPHEN 5-325 MG TABLET PO PRN (03:04)
[2021-11-11] MEDS: PIPERACILLIN/TAZO 3.375 GM/D5W 50 ML IV SCH ×2 (03:47→09:21)
[2021-11-11 04:15] VITALS: BP 107/63
[2021-11-11 06:57] LABS: CALCIUM, TOTAL 9.1 mg/dL (8.8-10.5); CREATININE 1.06 mg/dL (0.60-1.30); POTASSIUM 3.5 mmol/L (3.5-5.1); VANCOMYCIN,RANDOM 13.4 mcg/mL (25.0-50.0)
[2021-11-11] MEDS: VANCOMYCIN HCL 1 GM/D5% WATER 200 ML IV SCH (07:17)
[2021-11-11 07:31] VITALS: BP 118/71
[2021-11-11] MEDS: FAMOTIDINE 20 MG TABLET PO SCH (08:55)
[2021-11-11] MEDS: LISINOPRIL 20 MG TABLET PO SCH (08:55)
[2021-11-11] MEDS: METHADONE HCL 10 MG TABLET PO SCH (08:55)
[2021-11-11] MEDS ORDERED: SULF1TAB42 PO (10:51)
[2021-11-11] MEDS ORDERED: VANCOMYCIN HCL 750 MG in DEXTROSE 5%-WATER 250 ML IV SCH (16:00)
== END 2021-11-11 11:45 | disposition left against medical advice (07) | DRG 383 ==
LOC: EMS 23:06 → 6N 11-09 16:58
PROVIDERS: ADMIT Internal Medicine; ATTEND Internal Medicine
DX: L03.012 Cellulitis of left finger (principal); B19.20 Unspecified viral hepatitis C without hepatic coma; F17.210 Nicotine dependence, cigarettes, uncomplicated; I10 Essential (primary) hypertension; Z20.822 Contact with and (suspected) exposure to COVID-19; Z53.29 Procedure and treatment not carried out because of patient's decision for other reasons; Z82.49 Family history of ischemic heart disease and other diseases of the circulatory system; Z82.5 Family history of asthma and other chronic lower respiratory diseases; Z83.3 Family history of diabetes mellitus; Z88.8 Allergy status to other drugs, medicaments and biological substances; Z59.00 Homelessness unspecified
CPT/HCPCS: 80048; 80053; 80202; 83605; 85025; 87040; 87070; 99285; G0378; J2543; J3370; J7050; J7060

== ENCOUNTER 2023-05-14 08:36 | Emergency (ER) | payer OTHER ==
[~2023-05-14] VITALS: Ht 160 cm; Wt 62.2 kg
[~2023-05-14 08:36] MED LIST changes: +AMLO-257 PO; +SULF1TAB42 PO; -amlodipine PO
[2023-05-14 08:43] VITALS: BP 135/81; PULSE 61; RESP 18; TEMP 98.6
[2023-05-14 09:22] LABS: APPEARANCE,URINE CLEAR (CLEAR); BILIRUBIN,URINE NEGATIVE (NEGATIVE); GLUCOSE, URINE (UA) NEGATIVE (NEGATIVE); KETONES,URINE NEGATIVE (NEGATIVE); LEUKOCYTE ESTERASE ,URINE MODERATE (NEGATIVE); NITRATE,URINE NEGATIVE (NEGATIVE); OCCULT BLOOD,URINE NEGATIVE (NEGATIVE); PH,URINE 6.5 (5.0-8.0); PROTEIN,URINE NEGATIVE (NEGATIVE); SPECIFIC GRAVITIY, URINE 1.019 (1.003-1.030); UROBILINOGEN,URINE >12.0 mg/dL (<=1.0)
[2023-05-14 09:30] LABS: BACTERIA,URINE Few /HPF (None Seen); RBC,URINE None Seen /HPF (0-2); SQUAMOUS EPITHELIAL CELL,UR Few /LPF (None Seen)
[2023-05-14] MEDS ORDERED: CEPHALEXIN MONOHYDRATE 500 MG CAPSULE PO ONE (10:45)
[2023-05-14] MEDS ORDERED: TraMADol HCL 50 MG TABLET PO ONE (10:45)
[2023-05-14] MEDS ORDERED: CEPH-558 PO (11:21)
== END 2023-05-14 11:27 | disposition home or self-care (01) ==
LOC: EMS 08:59
DX: N39.0 Urinary tract infection, site not specified (principal); I10 Essential (primary) hypertension; F17.210 Nicotine dependence, cigarettes, uncomplicated; F11.90 Opioid use, unspecified, uncomplicated; Z98.890 Other specified postprocedural states; Z88.8 Allergy status to other drugs, medicaments and biological substances
CPT/HCPCS: 81001; 99283